=== PATIENT | male | born 1975 | race Caucasian/White ===

== ENCOUNTER 2018-12-30 09:38 | Day surgery (SDC) | payer BC ==
[2018-12-26 14:57] VITALS: BMI 26.4
[2018-12-30] MEDS ORDERED: MIDAZOLAM 2 MG/2 ML VIAL IV PRN (09:45)
[2018-12-30] MEDS ORDERED: LACTATED RINGERS 1,000 ML IV SCH (09:45)
[2018-12-30] MEDS ORDERED: LIDOCAINE 1% 20 ML VIAL (10MG/ML) FOR IV START INTRADERMA PRN (09:45)
[2018-12-30 09:54] VITALS: RESP 16; TEMP 97.2
[2018-12-30] MEDS ORDERED: PROPOFOL 10 MG/ML 20 ML VIAL IV ONE (10:29)
[2018-12-30] MEDS ORDERED: LIDOCAINE 1% INJ 10MG/ML (20 ML MDV) ONE (10:29)
--- NOTE | 2018-12-30 10:32 | P.GSHP ---
History of Present Illness H&P Date: 12/30/18 Chief Complaint: GERD 43-year-old male known to our service. Patient underwent upper endoscopy and colonoscopy in August 2015. Patient found have gastritis with erosions as well as distal esophagitis and a small hiatal hernia. The patient a small nodular area at the GE junction that was biopsied and was benign. Short-term follow-up was advised. He is now taking antiacids every other day or so. Denies dysphagia. Past Medical History Past Medical History: GERD/Reflux Additional Past Medical History / Comment(s): bad fall several years ago, fell >25 feet w/multiple fx's of skull, orbital fx.'s, some residual nerve damage History of Any Multi-Drug Resistant Organisms: None Reported Additional Past Surgical History / Comment(s): EGD, colonoscopy, nasal surgery Past Anesthesia/Blood Transfusion Reactions: No Reported Reaction Smoking Status: Never smoker - Past Family History Mother Family Medical History: No Reported History Medications and Allergies Home Medications Medication Instructions Recorded Confirmed Type Omeprazole [PriLOSEC] 20 mg PO Q2D 12/26/18 12/30/18 History Allergies Allergy/AdvReac Type Severity Reaction Status Date / Time No Known Allergies Allergy Verified 12/30/18 09:48 Surgical - Exam Vital Signs Temp Pulse Resp BP Pulse Ox 97.2 F L 73 16 128/80 97 12/30/18 09:53 12/30/18 09:53 12/30/18 09:53 12/30/18 09:53 12/30/18 09:53 Physical exam: General: Well-developed, well-nourished HEENT: Normocephalic, sclerae nonicteric Abdomen: Nontender, nondistended Extremities: No edema Neuro: Alert and oriented Assessment and Plan (1) GERD (gastroesophageal reflux disease) Narrative/Plan: Will proceed with upper endoscopy at this time. Current Visit: Yes Status: Acute Code(s): K21.9 - GASTRO-ESOPHAGEAL REFLUX DISEASE WITHOUT ESOPHAGITIS SNOMED Code(s): 849573454
--- NOTE | 2018-12-30 10:37 | P.PCN ---
Date of Procedure: 12/30/18 Procedure(s) Performed: Preoperative Dx: GERD Postoperative Dx: Mild gastritis, small hiatal hernia Procedure: EGD with Bx Anesthesia: Sedation Endoscopist: Dr. Jolly Specimens: Antrum Endoscopic Procedure: The patient was on the endoscopy table in the left decubitus position. The Olympus gastroscope was inserted into the oropharynx and passed under direct visualization to the region of the third portion of the duodenum. From that point the scope was slowly withdrawn inspecting all surfaces carefully. There were no neoplastic inflammatory or polypoid lesions throughout the duodenum. The pylorus was widely patent. The stomach was carefully inspected. There was gastritis present. A biopsy of the antrum took place to rule out H. pylori. Retroflexion revealed a small hiatal hernia. The GE junction itself however appeared free of inflammatory changes or nodularity. The esophagus was then carefully examined. There were no neoplastic inflammatory or polypoid lesions throughout the visualized esophagus. The patient was then taken to the recovery room in stable condition per anesthesia guidelines. Recommendations: Await biopsy results. Continue intermittent antiacid therapy.
[2018-12-30 11:09] VITALS: BP 122/82; PULSE 74
== END 2018-12-30 11:35 | disposition home or self-care (01) ==
LOC: ORWHC2ENDO 09:38
PROVIDERS: ATTEND Surgery
DX: K29.50 Unspecified chronic gastritis without bleeding (principal); K44.9 Diaphragmatic hernia without obstruction or gangrene; K21.9 Gastro-esophageal reflux disease without esophagitis; Z79.899 Other long term (current) drug therapy; Z87.19 Personal history of other diseases of the digestive system; Z91.81 History of falling
CPT/HCPCS: 88305; 43239; J2001; J2704